=== PATIENT | male | born 1955 | race Caucasian/White ===

== ENCOUNTER 2022-11-04 05:51 | Inpatient (IN) ==
--- NOTE | 2022-10-14 10:15 | PAT Medication Instructions ---
Medication Instructions Date of Service October 14, 2022 Home Medications aspirin 81 mg capsule 81 mg PO QAM cyanocobalamin (vitamin B-12) 100 mcg tablet (Vitamin B-12) 100 mcg PO QAM diclofenac sodium 75 mg tablet,delayed release 75 mg PO BID PRN Pain fluticasone propionate 50 mcg/actuation nasal spray,suspension 1 spray intranasal QAM metformin 850 mg tablet 850 mg PO TID omeprazole 20 mg tablet,delayed release 20 mg PO BID simvastatin 40 mg tablet 40 mg PO PM ASK your surgeon for instructions diclofenac sodium 75 mg tablet,delayed release 75 mg PO BID PRN Pain DO NOT take the morning of surgery cyanocobalamin (vitamin B-12) 100 mcg tablet (Vitamin B-12) 100 mcg PO QAM metformin 850 mg tablet 850 mg PO TID Take morning of surgery With a small sip of water, OTHERWISE NOTHING TO EAT OR DRINK AFTER MIDNIGHT: aspirin 81 mg capsule 81 mg PO QAM (unless surgeon directed otherwise) fluticasone propionate 50 mcg/actuation nasal spray,suspension 1 spray intranasal QAM omeprazole 20 mg tablet,delayed release 20 mg PO BID Take evening before surgery metformin 850 mg tablet 850 mg PO TID omeprazole 20 mg tablet,delayed release 20 mg PO BID simvastatin 40 mg tablet 40 mg PO PM Other Notes If you have any questions please call us at [phone] or [phone] or [phone] or [phone]
--- NOTE | 2022-10-21 09:22 | Anesthesiology Consultation ---
Date of Service October 21, 2022 Assessment & Plan (1) Encounter for pre-operative examination: Chart Review Chart Review: Acceptable Risk for Surgery (pending PCP clearance 10/24/22 ) and Patient seen in Pre Admission Testing -Awaiting PCP clearance 10/24/22 - Check BSG AM DOS Per PAT appt on 10/21/22, patient recently traveled to [place]- returned 10/08/22. Pt is vaccinated for Covid. Will leave to surgeon's discretion if preop Covid testing needed. Educated on importance of using Covid precautions one week prior to surgery Teaching & Discussion Pre-Anesthesia Teaching/Discussion Notes: Instructed NPO after midnight before surgery,except medications with 15 cc of water. Medication instructions provided according to the PAT guidelines. History Surgery Operation Date: 11/04/22 12:45 Proposed Procedures p L4-L5 Decompression and Fusion, Spinal Cord Monitoring - Sumeet Dooley DO Height/Weight Height: 5 ft 3 in Weight: 72.4 kg Allergies Allergy/AdvReac Type Severity Reaction Status Date / Time No Known Allergies Allergy Verified 10/14/22 07:43 Medications Home Medications Medication Instructions Recorded Confirmed Last Taken aspirin 81 mg capsule 81 mg PO QAM 10/14/22 10/14/22 Unknown cyanocobalamin (vitamin B-12) 100 100 mcg PO QAM 10/14/22 10/14/22 Unknown mcg tablet (Vitamin B-12) diclofenac sodium 75 mg 75 mg PO BID PRN Pain 10/14/22 10/14/22 Unknown tablet,delayed release fluticasone propionate 50 1 spray intranasal QAM 10/14/22 10/14/22 Unknown mcg/actuation nasal spray,suspension metformin 850 mg tablet 850 mg PO TID 10/14/22 10/14/22 Unknown omeprazole 20 mg tablet,delayed 20 mg PO BID 10/14/22 10/14/22 Unknown release simvastatin 40 mg tablet 40 mg PO PM 10/14/22 10/14/22 Unknown Past Medical History Medical History Diabetes Well controlled - per patient Environmental allergies GERD (gastroesophageal reflux disease) Well controlled and stable Hyperlipidemia Exercise / Class Metabolic Activity II 4-5 Yardwork/Stairs/Walk up hill (one flight of stairs - no chest pain or SOB ) Past Family History Family History Other No family history of adverse response to anesthesia Past Surgical History Surgical History History of repair of hip fracture UOC- old fx repair Hx of colonoscopy Hx of tooth extraction Past Anesthesia History No Hx of Anesthesia Complications and No Family Hx of Anesthesia Complications History of PONV No Hx of PONV and Hx of Motion Sickness Social History Smoking Status: Never smoker Do You Dip or Chew Tobacco: No Hx Alcohol Use: Yes alcohol intake frequency: a few times a month Hx Substance Use: No substance use type: does not use Review of Systems Snoring - unknown - sleeps alone Patient denies chest pain, shortness of breath, dyspnea on exertion, cough, wheezing, palpitations. No hx of seizures, stroke, OK. No hx of blood clots or blood transfusions Physical Exam Vital Signs VITALS BP 110/61 P 69 TEMP 98.1 SP02 98% RESP 16 Constitutional no acute distress ENMT Mouth: no TMJ clicking Thyromental Distance: > or= 3.5 Finger Breadths (3.5) Mallampati Class: II Mouth / Teeth: 1. Missing 2. Missing All top teeth missing Missing bottom noted teeth and bottom molars Neck neck extension not limited Respiratory normal respiratory effort; no respiratory distress Auscultation: lungs clear to auscultation bilaterally; no wheezes Cardiovascular Rate/Rhythm: regular rate and regular rhythm Heart Sounds: no murmur Vessels: no carotid bruit Musculoskeletal Spine: + pain with cervical ROM (mild) Extremities: extremities normal to inspection Psychiatric Orientation: alert Lab Results Anesthesia Preop Results Results Anesthesia Widget: WBC 4.72 K/ul (4.8-10.8) L 10/21/22 Hgb 14.6 g/dl (14.0-18.0) 10/21/22 Hct 43.5 % (40.1-51.0) 10/21/22 Plt 259 K/uL (130-400) 10/21/22 Na 139 mmol/L (136-145) 10/21/22 K 4.7 mmol/L (3.5-5.1) 10/21/22 Cl 105 mmol/L (98-107) 10/21/22 CO2 27 mmol/L (21-32) 10/21/22 BUN 14 mg/dl (6-23) 10/21/22 Creat 0.97 mg/dl (0.6-1.4) 10/21/22 Glucose Level 129 mg/dl (70-99(Fasting)) H 10/21/22 PT 10.5 Seconds (9.0-12.0) 10/21/22 PTT 26.8 Seconds (21.0-31.0) 10/21/22 INR 1.0 (0.9-1.1) 10/21/22 HA1c 7.4 % (4.5-5.6) H 10/21/22 Urine Color Yellow 10/21/22 Urine Appearance Clear (Clear) 10/21/22 Urine pH 6.0 (4.5-7.5) 10/21/22 Urine Specific [place] 1.016 (1.000-1.030) 10/21/22 Urine Protein Negative (Negative) 10/21/22 Urine Glucose (UA) Negative (Negative) 10/21/22 Urine Ketones Negative (Negative) 10/21/22 Urine Blood Negative (Negative) 10/21/22 Urine Nitrite Negative (Negative) 10/21/22 Urine Bilirubin Negative (Negative) 10/21/22 Urine Urobilinogen Negative (Negative) 10/21/22 Urine Leukocyte Esterase Negative (Negative) 10/21/22 Blood Type O Positive 10/21/22 Antibody Screen NEGATIVE 10/21/22 Testing Electrocardiogram Date: 10/21/22 Findings: + NSR @ (74bpm ) Rightward axis Chest X-Ray Date: 10/21/22 Findings: + NAD COVID-19 Risk Screen Screening Information COVID-19 Screen Date: 10/21/22 Exposure 21 Days Family/Household +COVID Last 21 Days: No Exposure 10 Days Any COVID Exposure Last 10 Days: No Symptoms Last 10 Days Experienced COVID Sx Last 10 Days: No + COVID 0-90 Days COVID + in Last 0-90 Days: No Risk Plan COVID Risk Plan: No Risk Identified Patient Education COVID Preop Screening Education Complete: Yes
[2022-11-04] MEDS ORDERED: CeleBREX 200 MG CAP PO SCH (06:00)
[2022-11-04] MEDS ORDERED: ACETAMINOPHEN 500 MG TAB PO SCH (06:00)
[2022-11-04] MEDS ORDERED: ceFAZolin 2000MG 2,000 MG/15 ML SYR IV SCH (06:00)
[2022-11-04] MEDS ORDERED: LR 15ML/HR IV SCH (06:00)
[2022-11-04] MEDS ORDERED: GABAPENTIN 300 MG CAP PO SCH (06:00)
[2022-11-04] MEDS ORDERED: MIDAZOLAM HCL 1 MG/ML 2ML VIAL ONE (07:03)
[2022-11-04] MEDS ORDERED: fentaNYL citrate 100 MCG/2 ML VIAL ONE ×2 (07:03→09:04)
[2022-11-04] MEDS ORDERED: PROPOFOL IV EMULSION 10 MG/ML 20 ML VIAL IV ONE (07:04)
[2022-11-04] MEDS ORDERED: LIDOCAINE 2% MPF LOCAL 5 ML VIAL INFIL ONE (07:04)
[2022-11-04] MEDS ORDERED: DEXAMETHASONE SOD INJ 4 MG/ML VIAL ONE (07:05)
[2022-11-04] MEDS ORDERED: ROCURONIUM BROMIDE 10 MG/ML 5 ML VIAL IV ONE ×6 (07:05→08:21)
[2022-11-04] MEDS ORDERED: BUPIVACAINE/EPINEPHRINE 0.25% 1:200,000 30 ML VIAL ONE (07:06)
[2022-11-04] MEDS ORDERED: ceFAZolin 330 MG/ML 1 GM VIAL ONE (07:06)
[2022-11-04] MEDS ORDERED: ONDANSETRON INJ 2 MG/ML 2 ML VIAL ONE (07:08)
[2022-11-04] MEDS ORDERED: SUGAMMADEX SODIUM 200 MG/2 ML VIAL IV ONE (07:16)
[2022-11-04] MEDS ORDERED: LARYING-O-JET KIT (LTA) ONE (07:21)
--- NOTE | 2022-11-04 07:42 | History & Physical Bridge Note ---
Date of Service November 04, 2022 History & Physical Bridge Note I have examined the patient, reviewed the History & Physical and in the interval since the performance of the History & Physical I have noted the following changes of clinical significance: no changes noted
--- NOTE | 2022-11-04 07:43 | History & Physical Report ---
Date of Service November 04, 2022 Assessment & Plan (1) Neurogenic claudication due to lumbar spinal stenosis: Plan: L4-L5 decompression and fusion History of Present Illness Chief Complaint: Back and leg pain Primary Care Provider: Demetri Weber PA-C This is a 67-year-old male who presents with chronic persistent back and leg pain after failing extensive course of nonoperative care is here for surgical intervention. Allergies Allergy/AdvReac Type Severity Reaction Status Date / Time No Known Allergies Allergy Verified 11/04/22 06:23 Home Medications Medication Instructions Recorded Confirmed Type aspirin 81 mg capsule 81 mg PO QAM 10/14/22 11/04/22 History cyanocobalamin (vitamin B-12) 100 100 mcg PO QAM 10/14/22 11/04/22 History mcg tablet (Vitamin B-12) diclofenac sodium 75 mg 75 mg PO BID PRN Pain 10/14/22 11/04/22 History tablet,delayed release fluticasone propionate 50 1 spray intranasal QAM 10/14/22 11/04/22 History mcg/actuation nasal spray,suspension metformin 850 mg tablet 850 mg PO TID 10/14/22 11/04/22 History omeprazole 20 mg tablet,delayed 20 mg PO BID 10/14/22 11/04/22 History release simvastatin 40 mg tablet 40 mg PO PM 10/14/22 11/04/22 History Past Med/Surg History Medical History Diabetes Well controlled - per patient Environmental allergies GERD (gastroesophageal reflux disease) Well controlled and stable Hyperlipidemia Surgical History History of repair of hip fracture 2019-U fx repair Hx of colonoscopy Hx of tooth extraction Family History Other No family history of adverse response to anesthesia Social History Smoking Status: Never smoker Second Hand Exposure: No; Do You Dip or Chew Tobacco: No; Tobacco Cessation Education Requested by Patient: No Hx Alcohol Use: Yes Hx Substance Use: No Preferred Language: Arabic Communication Ability: Effective Memorial Designer Required: No Beliefs That Will Affect Care: None Current Living Situation: Alone Other Information That Helps Us Care for You: No Feels Safe at Home: Yes Safety Concerns: Feels Safe At This Time Assistive Devices: Glasses Assistive Devices Comment: does not wear his dentures Physical Exam Physical Exam: Patient is alert and oriented Heart regular rhythm Lungs clear Results & Data Results & Data ([facility]) Vital Signs (Past 12 Hours) Vital Signs Temp Pulse Resp BP Pulse Ox O2 Del Method 11/04/22 06:37 36.8 C 74 18 172/90 H 98 Room Air
[2022-11-04] MEDS ORDERED: ePHEDrine sulfate 50 MG/ML SYR ONE (08:46)
[2022-11-04] MEDS ORDERED: ePHEDrine sulfate 50 MG/ML AMP IV PRN (08:54)
[2022-11-04] MEDS ORDERED: fentaNYL citrate 100 MCG/2 ML VIAL IV PRN (08:54)
[2022-11-04] MEDS ORDERED: ONDANSETRON INJ 2 MG/ML 2 ML VIAL IV PRN ×2 (08:54→11:02)
[2022-11-04] MEDS ORDERED: HYDROmorphone INJ 2 MG/ML SYR/VIAL IV PRN (08:54)
[2022-11-04] MEDS ORDERED: ATROPINE SULFATE 0.1 MG/ML 10ML SYR IV PRN (08:54)
[2022-11-04] MEDS ORDERED: ePHEDrine sulfate 50 MG/ML AMP ONE (09:05)
[2022-11-04] MEDS ORDERED: KETOROLAC 30 MG/ML VIAL ONE (09:11)
--- NOTE | 2022-11-04 09:25 | Operative Report ---
Post Operative Report Pre & Post Diagnosis Operation Date: 11/04/22 07:45 Pre-Op Diagnosis: Lumbar spinal stenosis L4-5 Spondylolisthesis L4-5 Herniated nucleus pulposus L4-5 Post-Op Diagnosis: Same I identified the patient and participated in the time-out.: Yes Procedure Operation Date: 11/04/22 07:45 Actual Procedures #1 lumbar decompression with bilateral medial facetectomies and foraminotomies L3-L4 L4-5. #2 posterior spinal fusion L4-5. #3 placement posterior instrumentation L4-5. #4 interbody fusion L4-5. #5 placement of Spira 14 x 26 mm cage at L4-5 #6 placement locally harvested morselized autograft in the posterior gutters. #7 placement of I factor combined with V toss in the interbody space and posterior lateral gutters. Surgeon Sumeet Dooley, Net Programmer Betzaida Chavez Estimated Blood Loss 100 Findings Consistent with Post-Op Diagnosis Specimens None Indications This is a 67-year-old male who presents above-mentioned diagnosis after failed course of nonoperative care is here for surgical invention. Description of Procedure Patient was met with identified informed consent obtained. Patient was then taken to the operative suite underwent a patient placed in a prone position on the Babak table top of the Pritesh frame. All bony prominences well-padded eyes inspected to ensure no external pressure placed upon the. This point the lumbar spine was prepped and draped in normal sterile fashion. Sharp dissection with the assistance of Bovie cautery was performed down to and exposing the lamina and transverse processes of L4-L5 bilaterally. From caudal to cephalad fashion complete laminectomy of L4 partial laminectomy L3 was performed includ ing bilateral medial facetectomies and foraminotomies addressing severe spinal stenosis as well as a massive disc herniation at L4-5. After decompression pedicle screws were placed in L4-5 bilaterally with assistance of fluoroscopy and the properly sized jeff placed. By way of entrance foraminal approach and right a complete discectomy of L4-5 was performed endplates curetted to subcortical bleeding bone and a 14 x 26 mm spiral cage filled with I factor tapped in position. The rods then compressed locked into final position bilaterally. The transverse processes of L for L5 were burred to subcortical bleeding bone. I factor bone of the test and locally harvested morselized autograft was placed in the posterior gutters. 15 round LASHELL drain inserted. The incision was then closed with 1 Vicryl the fascia 2-0 Vicryl subcutaneously and 4 Monocryl for final skin closure. Steri-Strips dressings placed. Patient waken taken to PACU in stable condition. Please note spinal cord monitoring was utilized at the procedure no changes noted. Lastly Betzaida Chavez was present at the entire procedure and all the patient positioning complex portions of the surgery and fascial closure. I attest to the content of the Intraoperative Record and any orders documented therein. Any exceptions are noted below.
--- NOTE | 2022-11-04 09:49 | Fluoroscopy Report ---
FL lumbar spine 2-3V CLINICAL HISTORY: L4-L5 DECOMPRESSION AND FUSION COMPARISON STUDY: None FLUOROSCOPY TIME: 20 seconds FLUOROSCOPY IMAGES: 2 EXPOSURE DOSE: 7.57 mGy FINDINGS: Posterior bilateral jeff and screw fusion with discectomy at L4-L5. The hardware appears int act. No unexpected opaque foreign bodies identified. IMPRESSION: Fluoroscopic assistance as above. ACT 112: Negative or not required by law. Electronically signed by: Nikhil Coleman M.D. 11/04/2022 9:48 AM
--- NOTE | 2022-11-04 10:29 | Anesthesiology Progress Note ---
Date of Service November 04, 2022 Anesthesia Post Procedure Vital Signs Vital Signs: Temp Pulse Pulse Resp BP Pulse Ox O2 Del Method 11/04/22 10:25 85 15 164/82 H 96 Room Air 11/04/22 10:15 36.1 C L 88 18 151/76 H 96 Room Air 11/04/22 10:05 87 12 152/77 H 97 Room Air 11/04/22 09:55 90 12 151/75 H 100 Oxymask 11/04/22 09:45 87 12 169/80 H 100 Oxymask 11/04/22 09:38 36.2 C L 82 16 155/71 H 100 Oxymask 11/04/22 06:37 36.8 C 74 18 172/90 H 98 Room Air O2 Flow Rate 11/04/22 10:25 11/04/22 10:15 11/04/22 10:05 11/04/22 09:55 6 11/04/22 09:45 6 11/04/22 09:38 6 11/04/22 06:37 Pain Intensity Bilateral Upper Leg: Pain Intensity: 2 Back: Pain Intensity: 4 Transfer of Care Handoff Completed per policy Notes Mental Status: alert / awake / arousable and participated in evaluation Patient Amnestic to Procedure: Yes Nausea / Vomiting: adequately controlled Pain: adequately controlled Airway Patency, RR, SpO2: stable & adequate BP & HR: stable & adequate Hydration State: stable & adequate Anesthetic Complications: no major complications apparent and Pt Satisfied with anesthetic care
[2022-11-04] MEDS ORDERED: LORazepam 2 MG/1 ML VIAL IV PRN (11:02)
[2022-11-04] MEDS ORDERED: METOCLOPRAMIDE HCL INJ 5 MG/ML 2 ML VIAL IV PRN (11:02)
[2022-11-04] MEDS ORDERED: ONDANSETRON 4 MG OD TAB PO PRN (11:02)
[2022-11-04] MEDS ORDERED: DO NOT ADMINISTER PNEUMOCOCCAL VACCINE PRN (11:02)
[2022-11-04] MEDS ORDERED: LORazepam 0.5 MG TAB PO PRN (11:02)
[2022-11-04] MEDS ORDERED: DO NOT ADMINISTER FLU VACCINE PRN (11:02)
[2022-11-04] MEDS ORDERED: hydrOXYzine HCl 25 MG TAB PO PRN (11:02)
[2022-11-04] MEDS ORDERED: HYDROmorphone INJ 0.5 MG/0.5 ML SYR IV PRN (11:02)
[2022-11-04] MEDS ORDERED: FAMOTIDINE 20 MG TAB PO PRN (11:02)
[2022-11-04] MEDS ORDERED: bisacodyL 10 MG SUPP PR PRN (11:02)
[2022-11-04] MEDS ORDERED: MAGNESIUM HYDROXIDE SUSP 30 ML UDC PO PRN (11:02)
[2022-11-04] MEDS ORDERED: HYDROmorphone INJ 1 MG/ML SYRINGE IV PRN (11:02)
[2022-11-04] MEDS ORDERED: diphenhydrAMINE Capsule 25 MG CAP PO PRN (11:02)
[2022-11-04] MEDS ORDERED: PROMETHAZINE HCL 12.5 MG in SODIUM CHLORIDE 0.9% 50 ML IV PRN (11:02)
[2022-11-04] MEDS ORDERED: ACETAMINOPHEN 1,000 MG/100 ML VIAL IV PRN (11:02)
[2022-11-04] MEDS ORDERED: SOD PHOSPHATE/SOD BIPHOSPHATE ENEMA 132 ML BTL PR PRN (11:02)
[2022-11-04] MEDS ORDERED: NALOXONE HCL 0.4 MG/1 ML VIAL/CARP IV PRN (11:02)
[2022-11-04] MEDS ORDERED: ALUMINUM/MAGNESIUM SUSP 30 ML UDC PO PRN (11:02)
[2022-11-04] MEDS ORDERED: PHARMACY GLYCEMIC MGMT CONSULT PRN (11:02)
[2022-11-04] MEDS ORDERED: CARBOHYDRATES FOR HYPOGLYCEMIA PO PRN (11:30)
[2022-11-04] MEDS ORDERED: LANTUS PER UNIT CHARGE SQ ONE (11:30)
[2022-11-04] MEDS ORDERED: DEXTROSE 50% 50 ML SYRINGE IV PRN (11:30)
[2022-11-04] MEDS ORDERED: GLUCAGON FOR INJ 1 MG VIAL IM PRN (11:30)
[2022-11-04] MEDS ORDERED: GLUCOSE 40% GEL 15 GM TUBE PO PRN (11:30)
[2022-11-04] MEDS ORDERED: GLUCOSE 10 TAB/TUBE PO PRN (11:30)
--- NOTE | 2022-11-04 11:32 | Pharmacy Report ---
Pharmacy Glycemic Short Note 2 - Date of Service November 04, 2022 - Glycemic Short BSG Results (Last 24 hours): 11/04/22 11/04/22 06:30 09:41 POC Glucose 182 H 219 H OUTPATIENT ANTIDIABETIC REGIMEN: * Metformin 850mg PO TID HbA1C: 7.4% (10/21/22) ASSESSMENT: * Pt is a 67 YOM with diabetes POD #0 lumbar decompression surgery. Pharmacy consulted to assist with glycemic management. * Pre op BSG-182, post op BSG-219mg/dL. Pt received dexamethasone intra-op and is scheduled dexamethasone 6mg IV daily X 3 doses. * Will initiate Novolog severe stress scale q6 (until diet ordered). Lantus 10 units X 1 given steroids on board. Re-assess basal needs in AM. PLAN FOR INPATIENT GLYCEMIC CONTROL: * Hold outpatient oral diabetes medications * Basal insulin * Lantus 10 units SQ X 1 * Bolus insulin * NovoLog per scale ACHS or Q6hrs while NPO * Goal Range: Low 110 mg/dL - High 140 mg/dL * Correction Factor: 25 mg/dL/unit * Nutritional / Prandial insulin per carb ratio of 1 unit per 8 grams CHO consumed
[2022-11-04] MEDS: SODIUM CHLORIDE 0.9% 1000ML 1,000 ML IV SCH ×2 (11:51→20:22)
[2022-11-04] MEDS ORDERED: INSULIN ASPART PER UNIT SC SCH (12:00)
--- NOTE | 2022-11-04 12:17 | Hospitalist Consultation ---
Date of Consultation November 04, 2022 Assessment & Plan (1) Neurogenic claudication due to lumbar spinal stenosis: POD#0 L4-L5 decompression and fusion by Dr. Dooley Activity and wound care orders as per ortho Pain control with bowel regimen PT/OT Monitor H/H for acute blood loss anemia and transfuse blood products PRN EBL 100 cc (2) Diabetes: Recent Hgb A1c 7.4 Hold oral agents Glycemic pharmacy consulted by spine ortho (3) Hyperlipidemia: Continue statin (4) GERD (gastroesophageal reflux disease): Continue PPI DVT PROPHYLAXIS TEDs/SCDs as per spine Ortho Supervising Physician Co-Signing Physician Notes Pt is a 67 y/o M with hx of DMII, HLD, DDD admitted for L4-L5 fusion and discectomy and consulted for medication co management. PE: NAD, well developed Lungs: CTA, no wheezing or crackles Cardiac: Normal S1/S2, no murmur Abd: ND, soft, NT MSK: able to move b/l toes Psych: AAOx3, normal affect A/P: S/p L4-L5 decompression and fusion: -pt is doing well - BP is slightly elevated but overall VSS - repeat CBC and BMp - pain management per ortho team - PT/OT Elevated BP: -pt does not take any hx of HTN or HTN meds at home -for now will monitor BP at this time -if BP remains elevated then consider ACEI or ARBS DMII: -hold metformin -ISS Other chronic conditions: plan as above Agree with A/P by HANNAH Roque History of Present Illness Reason for Consultation: Postop medical management Requesting Physician: Dr. Dooley Attending Physician: Sumeet Dooley DO History of Present Illness 67-year-old male with PMH DM type II, dyslipidemia, GERD, and other problems listed below who is s/p L4-L5 decompression and fusion today by Dr. Dooley. Postoperatively, the patient is doing well. He reports his pain is well controlled. Reports right leg numbness and tingling that was present prior to surgery. No other lower extremity weakness, numbness, tingling reported. He reports a mild headache due to caffeine withdrawal. No chest pain or shortness of breath. Reports some mild nausea postoperatively that has since resolved. No abdominal pain. Denies lightheadedness and dizziness. Patient has not voided since surgery. Allergies Allergy/AdvReac Type Severity Reaction Status Date / Time No Known Allergies Allergy Verified 11/04/22 06:23 Home Medications Medication Instructions Recorded Confirmed Type aspirin 81 mg capsule 81 mg PO QAM 10/14/22 11/04/22 History cyanocobalamin (vitamin B-12) 100 100 mcg PO QAM 10/14/22 11/04/22 History mcg tablet (Vitamin B-12) diclofenac sodium 75 mg 75 mg PO BID PRN Pain 10/14/22 11/04/22 History tablet,delayed release fluticasone propionate 50 1 spray intranasal QAM 10/14/22 11/04/22 History mcg/actuation nasal spray,suspension metformin 850 mg tablet 850 mg PO BID 10/14/22 11/04/22 History omeprazole 20 mg tablet,delayed 20 mg PO BID 10/14/22 11/04/22 History release simvastatin 40 mg tablet 40 mg PO PM 10/14/22 11/04/22 History Patient History Medical History Diabetes Well controlled - per patient Environmental allergies GERD (gastroesophageal reflux disease) Well controlled and stable Hyperlipidemia Surgical History History of repair of hip fracture 2020-UOC- old fx repair Hx of colonoscopy Hx of tooth extraction Family History Mother Diabetes Other No family history of adverse response to anesthesia Social History Smoking Status: Never smoker Second Hand Exposure: No; Do You Dip or Chew Tobacco: No; Tobacco Cessation Education Requested by Patient: No Hx Alcohol Use: Yes Hx Substance Use: No Preferred Language: Maltese Communication Ability: Effective Blocking Machine Operator Second Required: No Beliefs That Will Affect Care: None Current Living Situation: Alone Other Information That Helps Us Care for You: No Feels Safe at Home: Yes Safety Concerns: Feels Safe At This Time Assistive Devices: Walker Assistive Devices Comment: does not wear his dentures Review of Systems Review of Systems: ROS per HPI, all other systems reviewed and negative Physical Exam Constitutional: WD/WN, vitals as above Eyes: PERRL, conjunctivae normal, anicteric sclerae ENMT: external ear and nose normal, oropharynx normal Respiratory: normal respiratory effort, lungs clear to auscultation Cardiovascular: Rate/Rhythm: regular rate and regular rhythm Vessels: normal peripheral pulses Extremities: no edema Gastrointestinal (Abdomen): normal bowel sounds, soft, nontender, no hepatosplenomegaly Musculoskeletal: no cyanosis or clubbing, extremities motor strength 5/5 S/p back surgery, pedal pushes and pulls strong bilaterally, drain in place draining bloody drainage Skin: no rashes, warm and dry Neurologic: PERRL, EOMI, accommodation nl, no face palsy, no dysarthria Psychiatric: A+Ox3, euthymic affect Results & Data Results & Data ([facility]) Vital Signs (Past 12 Hours) Vital Signs Temp Pulse Pulse Resp BP Pulse Ox O2 Del Method 11/04/22 11:19 36.4 C L 82 18 153/74 H 95 Room Air 11/04/22 10:40 84 14 157/79 H 97 Room Air 11/04/22 10:25 85 15 164/82 H 96 Room Air 11/04/22 10:15 36.1 C L 88 18 151/76 H 96 Room Air 11/04/22 10:05 87 12 152/77 H 97 Room Air 11/04/22 09:55 90 12 151/75 H 100 Oxymask 11/04/22 09:45 87 12 169/80 H 100 Oxymask 11/04/22 09:38 36.2 C L 82 16 155/71 H 100 Oxymask 11/04/22 06:37 36.8 C 74 18 172/90 H 98 Room Air O2 Flow Rate 11/04/22 11:19 11/04/22 10:40 11/04/22 10:25 11/04/22 10:15 11/04/22 10:05 11/04/22 09:55 6 11/04/22 09:45 6 11/04/22 09:38 6 11/04/22 06:37
[2022-11-04] MEDS: oxyCODONE HCL IR 5 MG TAB (IMMEDIATE RELEASE) PO PRN ×2 (12:55→17:40)
[2022-11-04] MEDS: ceFAZolin 2000MG 2,000 MG/15 ML SYR IV SCH (17:36)
[2022-11-04] MEDS: INSULIN ASPART PER UNIT SC SCH ×2 (17:36→20:32)
[2022-11-04] MEDS: ACETAMINOPHEN 500 MG TAB PO PRN (19:48)
[2022-11-04] MEDS: DOCUSATE SODIUM/SENNA 50/8.6MG TAB PO SCH (20:24)
[2022-11-04] MEDS: SIMVASTATIN 40 MG TAB PO SCH (20:24)
[2022-11-04] MEDS: PANTOprazole 40 MG TAB PO SCH (20:25)
[2022-11-05] MEDS: oxyCODONE HCL IR 5 MG TAB (IMMEDIATE RELEASE) PO PRN ×4 (00:20→21:28)
[2022-11-05] MEDS: ceFAZolin 2000MG 2,000 MG/15 ML SYR IV SCH (00:21)
[2022-11-05] MEDS ORDERED: COUGH DROP (SUGAR FREE) LOZ 24 LOZ/1 BOX BUCCAL ONE (04:55)
[2022-11-05] MEDS: POLYETHYLENE (MIRALAX) 17 GM PACK PO SCH ×3 (05:00→18:01)
[2022-11-05 06:07] LABS: Basophils # (auto) 0.01 K/uL (0-0.2); Basophils % (auto) 0.1 %; Eosinophils # (auto) 0.02 K/uL (0-0.50); Eosinophils % (auto) 0.2 %; Hematocrit (blood only) 35.4 % (40.1-51.0); Hemoglobin 12.1 g/dl (14.0-18.0); Immature Granulocytes # (auto) 0.03 K/uL (0.00-0.02); Immature Granulocytes % (auto) 0.3 %; Lymphocytes # (auto) 1.35 K/uL (1.2-3.4); Lymphocytes % (auto) 15.5 %; Mean Corpuscular Hemoglobin 32.3 pg (25.0-34.0); Mean Corpuscular Hgb Conc 34.2 g/dL (32.0-36.0); Mean Corpuscular Volume 94.4 fL (80.0-100.0); Mean Platelet Volume 10.6 fL (9.4-12.4); Monocytes # (auto) 0.55 K/uL (0.24-0.82); Monocytes % (auto) 6.3 %; Neutrophils # (auto) 6.74 K/uL (1.4-6.5); Neutrophils % (auto) 77.6 %; Platelet Count 247 K/uL (130-400); RDW Coefficient of Variation 13.2 % (11.5-14.5); RDW Standard Deviation 45.6 fL (36.4-46.3); Red Blood Count 3.75 M/uL (4.63-6.08)
[2022-11-05 06:14] LABS: BUN Creatinine Ratio 10.8 (10-20); Calcium 8.7 mg/dl (8.5-10.1); Creatinine Clr Calc Pharmacy 59.9 ml/min; Est GFR (African American) 86.5 ml/min; Est GFR (Non-African American) 74.6 ml/min; Potassium 4.2 mmol/L (3.5-5.1)
[2022-11-05] MEDS: ASPIRIN 81 MG CHEW PO SCH (11:05)
[2022-11-05] MEDS: CYANOCOBALAMIN (B-12) 100 MCG TABLET PO SCH (11:05)
[2022-11-05] MEDS: PANTOprazole 40 MG TAB PO SCH ×2 (11:06→20:58)
[2022-11-05] MEDS: FLUTICASONE PROPIONATE NA SPR 16 GM BTL SCH (11:06)
[2022-11-05] MEDS: INSULIN ASPART PER UNIT SC SCH ×4 (11:06→21:20)
[2022-11-05] MEDS: LANTUS PER UNIT CHARGE SQ SCH (11:07)
[2022-11-05] MEDS: dexAMETHasone 6 MG in SYRINGE 0 ML IV SCH (11:07)
--- NOTE | 2022-11-05 12:32 | Hospitalist Progress Note ---
Date of Service November 05, 2022 Assessment & Plan (1) Neurogenic claudication due to lumbar spinal stenosis: Plan: POD#0 L4-L5 decompression and fusion by Dr. Dooley Activity and wound care orders as per ortho Pain control with bowel regimen PT/OT Monitor H/H for acute blood loss anemia and transfuse blood products PRN EBL 100 cc (2) Diabetes: Plan: Recent Hgb A1c 7.4 Hold oral agents Glycemic pharmacy consulted by spine ortho (3) Hyperlipidemia: Plan: Continue statin (4) GERD (gastroesophageal reflux disease): Plan: Continue PPI DVT PROPHYLAXIS TEDs/SCDs as per spine Ortho Admission and Anticipated Discharge Date Admission Date: November 04, 2022 Results & Data Results & Data ([facility]) Vital Signs (Past 12 Hours) Vital Signs Temp Pulse Resp BP Pulse Ox O2 Del Method 11/05/22 07:42 36.7 C 72 18 159/78 H 95 Room Air 11/05/22 03:00 36.4 C L 73 18 156/78 H 96 Room Air
--- NOTE | 2022-11-05 12:34 | Hospitalist Progress Note ---
Date of Service November 05, 2022 Assessment & Plan (1) Neurogenic claudication due to lumbar spinal stenosis: (2) Diabetes: (3) Hyperlipidemia: (4) GERD (gastroesophageal reflux disease): Plan Neurogenic claudication due to lumbar spinal stenosis: POD#1 L4-L5 decompression and fusion by Dr. Dooley Activity and wound care orders as per ortho Pain control with bowel regimen PT/OT EBL 100ml; LASHELL drain 335ml Acute Blood Loss Anemia, post-surgical expected Pre op hgb 14.6, hgb today 12.1 Likely dilutional component as well Diabetes Type 2 Recent Hgb A1c 7.4 Hold metformin Glycemic pharmacy consulted by spine ortho, appreciate their recs BSG 138 Elevated blood pressure reading BP 159/78 Has been elevated systolic since admission Not on any oral antihypertensive Per EPIC review BP has been controlled as outpt, may be pain related or situational Will monitor closely Hyperlipidemia: Continue statin GERD (gastroesophageal reflux disease): Continue PPI DVT ppx: Per ortho Dispo: per primary PCP: Demetri Weber FULL CODE Pt was seen and examined in collaboration with Dr. De Dios, please see addendum A total of 35 minutes were spent with greater than 50% of that time face to face with the patient, personally reviewing all current laboratories, imaging studie s, past medication reconciliation, outpatient chart review, and discussion with specialists to collaborate care for the patient with attending. Please see attending documentation for corrections and/or additions. Thank you for this consultation. We will follow the patient with you during their hospital stay. You can reach a member of the [facility] Hospitalist Team 04/05 via hospitalist role on tiger text. Admission and Anticipated Discharge Date Admission Date: November 04, 2022 Supervising Physician Co-Signing Physician Notes Patient is seen and examined at bedside. States having back pain which is controlled with medications. Denies any chest pain, dyspnea, shortness of breath. On exam patient is moderately built and nourished, no apparent distress, normocephalic/atraumatic, EOMI, normal breath sounds, clear to auscultation, S1-S2, no murmur, no pedal edema, abdomen soft, nontender, normal bowel sounds, Back:surgical site in dressing, alert, awake, oriented, grossly no focal deficits. Pain control, DVT prophylaxis as per primary team. Continue PT OT, wound care. Continue insulin for management of diabetes mellitus. Continue bowel regimen to prevent constipation. Blood pressure elevated--asymptomatic likely situational, secondary to pain and steroids, monitor blood pressure for now. I personally reviewed the record. Patient is interviewed and examined at bedside. Patient's care is coordinated with Edith Daniel PA-C. Please refer to the documentation above for details of patient's presentation and for discussion of other issues. Subjective Pt was seen and examined in room 303. Follow up lumbar surgery. Overall complains of incisional discomfort, stretching. Denies any radicular sx. Denies f/c/s, chest pain, sob, v/d. He does have some occasional nausea but tolerating diet. Voiding without difficulty. Review of Systems Review of Systems: All systems reviewed & are unremarkable except as noted in HPI & below Physical Exam Physical Exam: Gen: WD/WN, sitting in bedside chair, NAD, A&O x3 HEENT: Normocephalic, atraumatic, conjunctivae moist, sclerae anicteric, mucous membranes moist. Lung: Clear to Auscultation bilaterally, no wheezes/rales/rhonchi Heart: Regular rate, regular rhythm, no murmurs, rubs, or gallops Abdomen: Soft, NT, ND +BS x 4 Extremities: No edema, lumbar dressing cdi with serosang drainage Skin: Warm, no rash, negative turgor. Results & Data Results & Data ([facility]) Vital Signs (Past 12 Hours) Vital Signs Temp Pulse Resp BP Pulse Ox O2 Del Method 11/05/22 07:42 36.7 C 72 18 159/78 H 95 Room Air 11/05/22 03:00 36.4 C L 73 18 156/78 H 96 Room Air Laboratory Results Short CBC 11/05/22 Range/Units 05:23 WBC 8.70 (4.8-10.8) K/ul Hgb 12.1 L (14.0-18.0) g/dl Hct 35.4 L (40.1-51.0) % Plt Count 247 (130-400) K/uL BMP 11/05/22 05:23 Sodium 139 Potassium 4.2 Chloride 107 Carbon Dioxide 29 BUN 11 Creatinine 1.02 Glucose 175 H Calcium 8.7 Medications Administered Current Inpatient Medications Acetaminophen (Acetaminophen 500 Mg Tab) 1,000 mg PO Q8H PRN PRN Reason: MILD Pain Scale 1,2,3 & Pre PT Stop: 12/04/22 11:01 Last Admin: 11/04/22 19:48 Dose: 1,000 mg Al Hydrox/Mg Hydrox/Simethicone (Aluminum/Magnesium Susp 30 Ml Udc) 30 ml PO Q6H PRN PRN Reason: Dyspepsia Stop: 12/04/22 11:01 Aspirin (Aspirin 81 Mg Chew) 81 mg PO [facility] Stop: 12/05/22 08:59 Last Admin: 11/05/22 11:05 Dose: 81 mg Bisacodyl (Bisacodyl 10 Mg Supp) 10 mg AR DAILY PRN PRN Reason: Constipation Stop: 12/04/22 11:01 Cyanocobalamin (Cyanocobalamin (B-12) 100 Mcg Tablet) 100 mcg PO [facility] Stop: 12/05/22 08:59 Last Admin: 11/05/22 11:05 Dose: 100 mcg Dextrose (Dextrose 50% 50 Ml Syringe) 25 - 50 ml IV UD PRN; Protocol PRN Reason: Hypoglycemia Protocol Stop: 12/04/22 11:29 Diphenhydramine HCl (Diphenhydramine Capsule 25 Mg Cap) 25 mg PO Q6H PRN PRN Reason: Allergic Rhinitis/Insomnia Stop: 12/04/22 11:01 Famotidine (Famotidine 20 Mg Tab) 20 mg PO Q12H PRN PRN Reason: Dyspepsia Stop: 12/04/22 11:01 Fluticasone Propionate (Fluticasone Propionate Na Spr 16 Gm Btl) 1 sprays NA [facility] Stop: 12/05/22 08:59 Last Admin: 11/05/22 11:06 Dose: 1 sprays Glucagon (Glucagon For Inj 1 Mg Vial) 1 mg IM UD PRN; Protocol PRN Reason: Hypoglycemia Protocol Stop: 12/04/22 11:29 Glucose (Glucose 40% Gel 15 Gm Tube) 15 - 30 gm PO UD PRN; Protocol PRN Reason: Hypoglycemia Protocol Stop: 12/04/22 11:29 Glucose (Glucose 10 Tab/Tube) 4 - 8 tab PO UD PRN; Protocol PRN Reason: Hypoglycemia Protocol Stop: 12/04/22 11:29 Hydromorphone HCl (Hydromorphone Inj 0.5 Mg/0.5 Ml Syr) 0.5 mg IV Q3H PRN PRN Reason: MODERATE Pain (Scale 4,5,6) & Pre PT Stop: 11/18/22 11:01 Hydromorphone HCl (Hydromorphone Inj 1 Mg/Ml Syringe) 1 mg IV Q3H PRN PRN Reason: SEVERE Pain (Scale 7,8,9,10) Stop: 11/18/22 11:01 Hydroxyzine HCl (Hydroxyzine Hcl 25 Mg Tab) 25 mg PO Q8H PRN PRN Reason: Anxiety Stop: 12/04/22 11:01 Promethazine HCl 12.5 mg/ (Sodium Chloride) 50.5 mls @ 202 mls/hr IV Q6H PRN PRN Reason: Nausea &/or Vomiting Stop: 12/04/22 11:01 Dexamethasone 6 mg/ Syringe 1.5 mls @ 1 mls/min IV DAILY [facility] Stop: 11/07/22 09:02 Last Admin: 11/05/22 11:07 Dose: 1 mls/min Influenza Virus Vaccine Quadrival (Do Not Administer Flu Vaccine) 1 each N/A PRN PRN PRN Reason: Notification Stop: 12/04/22 11:01 Insulin Aspart (Insulin Aspart Per Unit) 0 units SC ACHS [facility] Stop: 12/04/22 11:59 Last Admin: 11/05/22 11:06 Dose: Not Given Insulin Glargine (Lantus Per Unit Charge) 10 units SQ DAILY [facility] Stop: 12/05/22 08:59 Last Admin: 11/05/22 11:07 Dose: 10 units Lorazepam (Lorazepam 0.5 Mg Tab) 0.5 mg PO Q8H PRN PRN Reason: Sedation/Anxiety Stop: 12/04/22 11:01 Magnesium Hydroxide (Magnesium Hydroxide Susp 30 Ml Udc) 30 ml PO Q24H PRN PRN Reason: Constipation Stop: 12/04/22 11:01 Metoclopramide HCl (Metoclopramide Hcl Inj 5 Mg/Ml 2 Ml Vial) 10 mg IV Q6H PRN PRN Reason: Nausea &/or Vomiting Stop: 12/04/22 11:01 Miscellaneous (Carbohydrates For Hypoglycemia ) 15 - 30 gm PO UD PRN PRN Reason: Hypoglycemia Treatment Stop: 12/04/22 11:29 Miscellaneous Information (Pharmacy Glycemic Mgmt Consult) 1 each N/A UD PRN PRN Reason: Consult Stop: 12/04/22 11:01 Naloxone HCl (Naloxone Hcl 0.4 Mg/1 Ml Vial/Carp) 0.1 mg IV Q5M PRN PRN Reason: Oversedation/Resp depression Stop: 12/04/22 11:01 Ondansetron HCl (Ondansetron Inj 2 Mg/Ml 2 Ml Vial) 4 mg IV Q6H PRN PRN Reason: Nausea &/or Vomiting Stop: 12/04/22 11:01 Ondansetron HCl (Ondansetron 4 Mg Od Tab) 4 mg PO Q6H PRN PRN Reason: Nausea Stop: 12/04/22 11:01 Oxycodone HCl (Oxycodone Hcl Ir 5 Mg Tab (Immediate Release)) 5 - 10 mg PO Q4H PRN PRN Reason: Pain & Pre PT Stop: 11/18/22 11:01 Last Admin: 11/05/22 11:07 Dose: 10 mg Pantoprazole Sodium (Pantoprazole 40 Mg Tab) 40 mg PO BID [facility] Stop: 12/04/22 20:59 Last Admin: 11/05/22 11:06 Dose: 40 mg Pneumococcal Polyvalent Vaccine (Do Not Administer Pneumococcal Vaccine) 1 each N/A PRN PRN PRN Reason: Notification Stop: 12/04/22 11:01 Polyethylene Glycol (Polyethylene (Miralax) 17 Gm Pack) 17 gm PO Q6 [facility] Stop: 12/05/22 05:59 Last Admin: 11/05/22 05:00 Dose: 17 gm Senna/Docusate Sodium (Docusate Sodium/Senna 50/8.6mg Tab) 2 tab PO HS [facility] Stop: 12/04/22 20:59 Last Admin: 11/04/22 20:24 Dose: 2 tab Simvastatin (Simvastatin 40 Mg Tab) 40 mg PO PM [facility] Stop: 12/04/22 20:59 Last Admin: 11/04/22 20:24 Dose: 40 mg Sodium Biphosphate/Sodium Phosphate (Sod Phosphate/Sod Biphosphate Enema 132 Ml Btl) 132 ml AR ONE PRN PRN Reason: Constipation Stop: 12/04/22 11:01 Tramadol HCl (Tramadol Hcl 50 Mg Tablet) 50 - 100 mg PO Q4H PRN PRN Reason: Moderate-Severe pain & Pre PT Stop: 12/04/22 11:01
--- NOTE | 2022-11-05 12:39 | Hospitalist Progress Note ---
Date of Service November 05, 2022 Assessment & Plan (1) Neurogenic claudication due to lumbar spinal stenosis: (2) Diabetes: (3) Hyperlipidemia: (4) GERD (gastroesophageal reflux disease): Plan Neurogenic claudication due to lumbar spinal stenosis: POD#1 L4-L5 decompression and fusion by Dr. Dooley Activity and wound care orders as per ortho Pain control with bowel regimen PT/OT EBL 100ml; LASHELL drain 335ml Acute Blood Loss Anemia, post-surgical expected Pre op hgb 14.6, hgb today 12.1 Likely dilutional component as well Diabetes Type 2 Recent Hgb A1c 7.4 Hold metformin Glycemic pharmacy consulted by spine ortho, appreciate their recs BSG 138 Elevated blood pressure reading BP 159/78 Has been elevated systolic since admission Not on any oral antihypertensive Per EPIC review BP has been controlled as outpt, may be pain related or situational Will monitor closely Hyperlipidemia: Continue statin GERD (gastroesophageal reflux disease): Continue PPI DVT ppx: Per ortho Dispo: per primary PCP: Demetri Weber FULL CODE Pt was seen and examined in collaboration with Dr. De Dios, please see addendum A total of 35 minutes were spent with greater than 50% of that time face to face with the patient, personally reviewing all current laboratories, imaging studie s, past medication reconciliation, outpatient chart review, and discussion with specialists to collaborate care for the patient with attending. Please see attending documentation for corrections and/or additions. Thank you for this consultation. We will follow the patient with you during their hospital stay. You can reach a member of the [facility] Hospitalist Team 04/05 via hospitalist role on tiger text. Admission and Anticipated Discharge Date Admission Date: November 04, 2022 Subjective Pt was seen and examined in room 303. Follow up lumbar surgery. Overall complains of incisional discomfort, stretching. Denies any radicular sx. Denies f/c/s, chest pain, sob, v/d. He does have some occasional nausea but tolerating diet. Voiding without difficulty. Review of Systems Review of Systems: All systems reviewed & are unremarkable except as noted in HPI & below Physical Exam Physical Exam: Gen: WD/WN, sitting in bedside chair, NAD, A&O x3 HEENT: Normocephalic, atraumatic, conjunctivae moist, sclerae anicteric, mucous membranes moist. Lung: Clear to Auscultation bilaterally, no wheezes/rales/rhonchi Heart: Regular rate, regular rhythm, no murmurs, rubs, or gallops Abdomen: Soft, NT, ND +BS x 4 Extremities: No edema, lumbar dressing cdi with serosang drainage Skin: Warm, no rash, negative turgor. Results & Data Results & Data ([facility]) Vital Signs (Past 12 Hours) Vital Signs Temp Pulse Resp BP Pulse Ox O2 Del Method 11/05/22 11:20 37 C 86 18 173/80 H 99 Room Air 11/05/22 07:42 36.7 C 72 18 159/78 H 95 Room Air 11/05/22 03:00 36.4 C L 73 18 156/78 H 96 Room Air Laboratory Results Short CBC 11/05/22 Range/Units 05:23 WBC 8.70 (4.8-10.8) K/ul Hgb 12.1 L (14.0-18.0) g/dl Hct 35.4 L (40.1-51.0) % Plt Count 247 (130-400) K/uL BMP 11/05/22 05:23 Sodium 139 Potassium 4.2 Chloride 107 Carbon Dioxide 29 BUN 11 Creatinine 1.02 Glucose 175 H Calcium 8.7 Medications Administered Current Inpatient Medications Acetaminophen (Acetaminophen 500 Mg Tab) 1,000 mg PO Q8H PRN PRN Reason: MILD Pain Scale 1,2,3 & Pre PT Stop: 12/04/22 11:01 Last Admin: 11/04/22 19:48 Dose: 1,000 mg Al Hydrox/Mg Hydrox/Simethicone (Aluminum/Magnesium Susp 30 Ml Udc) 30 ml PO Q6H PRN PRN Reason: Dyspepsia Stop: 12/04/22 11:01 Aspirin (A[facility]in 81 Mg Chew) [facility]: 12/05/22 08:59 Last Admin: 11/05/22 11:05 Dose: 81 mg Bisacodyl (Bisacodyl 10 Mg Supp) 10 mg AL DAILY PRN PRN Reason: Constipation Stop: 12/04/22 11:01 Cyanocobalamin (Cyanocobalamin (B-12) 100 Mcg Tablet) 100 mcg PO QAM [facility] Stop: 12/05/22 08:59 Last Admin: 11/05/22 11:05 Dose: 100 mcg Dextrose (Dextrose 50% 50 Ml Syringe) 25 - 50 ml IV UD PRN; Protocol PRN Reason: Hypoglycemia Protocol Stop: 12/04/22 11:29 Diphenhydramine HCl (Diphenhydramine Capsule 25 Mg Cap) 25 mg PO Q6H PRN PRN Reason: Allergic Rhinitis/Insomnia Stop: 12/04/22 11:01 Famotidine (Famotidine 20 Mg Tab) 20 mg PO Q12H PRN PRN Reason: Dyspepsia Stop: 12/04/22 11:01 Fluticasone Propionate (Fluticasone Propionate Na Spr 16 Gm Btl) 1 sprays NA QAM [facility] Stop: 12/05/22 08:59 Last Admin: 11/05/22 11:06 Dose: 1 sprays Glucagon (Glucagon For Inj 1 Mg Vial) 1 mg IM UD PRN; Protocol PRN Reason: Hypoglycemia Protocol Stop: 12/04/22 11:29 Glucose (Glucose 40% Gel 15 Gm Tube) 15 - 30 gm PO UD PRN; Protocol PRN Reason: Hypoglycemia Protocol Stop: 12/04/22 11:29 Glucose (Glucose 10 Tab/Tube) 4 - 8 tab PO UD PRN; Protocol PRN Reason: Hypoglycemia Protocol Stop: 12/04/22 11:29 Hydromorphone HCl (Hydromorphone Inj 0.5 Mg/0.5 Ml Syr) 0.5 mg IV Q3H PRN PRN Reason: MODERATE Pain (Scale 4,5,6) & Pre PT Stop: 11/18/22 11:01 Hydromorphone HCl (Hydromorphone Inj 1 Mg/Ml Syringe) 1 mg IV Q3H PRN PRN Reason: SEVERE Pain (Scale 7,8,9,10) Stop: 11/18/22 11:01 Hydroxyzine HCl (Hydroxyzine Hcl 25 Mg Tab) 25 mg PO Q8H PRN PRN Reason: Anxiety Stop: 12/04/22 11:01 Promethazine HCl 12.5 mg/ (Sodium Chloride) 50.5 mls @ 202 mls/hr IV Q6H PRN PRN Reason: Nausea &/or Vomiting Stop: 12/04/22 11:01 Dexamethasone 6 mg/ Syringe 1.5 mls @ 1 mls/min IV DAILY [facility] Stop: 11/07/22 09:02 Last Admin: 11/05/22 11:07 Dose: 1 mls/min Influenza Virus Vaccine Quadrival (Do Not Administer Flu Vaccine) 1 each N/A PRN PRN PRN Reason: Notification Stop: 12/04/22 11:01 Insulin Aspart (Insulin Aspart Per Unit) 0 units SC ACHS [facility] Stop: 12/04/22 11:59 Last Admin: 11/05/22 11:06 Dose: Not Given Insulin Glargine (Lantus Per Unit Charge) 10 units SQ DAILY [facility] Stop: 12/05/22 08:59 Last Admin: 11/05/22 11:07 Dose: 10 units Lorazepam (Lorazepam 0.5 Mg Tab) 0.5 mg PO Q8H PRN PRN Reason: Sedation/Anxiety Stop: 12/04/22 11:01 Magnesium Hydroxide (Magnesium Hydroxide Susp 30 Ml Udc) 30 ml PO Q24H PRN PRN Reason: Constipation Stop: 12/04/22 11:01 Metoclopramide HCl (Metoclopramide Hcl Inj 5 Mg/Ml 2 Ml Vial) 10 mg IV Q6H PRN PRN Reason: Nausea &/or Vomiting Stop: 12/04/22 11:01 Miscellaneous (Carbohydrates For Hypoglycemia ) 15 - 30 gm PO UD PRN PRN Reason: Hypoglycemia Treatment Stop: 12/04/22 11:29 Miscellaneous Information (Pharmacy Glycemic Mgmt Consult) 1 each N/A UD PRN PRN Reason: Consult Stop: 12/04/22 11:01 Naloxone HCl (Naloxone Hcl 0.4 Mg/1 Ml Vial/Carp) 0.1 mg IV Q5M PRN PRN Reason: Oversedation/Resp depression Stop: 12/04/22 11:01 Ondansetron HCl (Ondansetron Inj 2 Mg/Ml 2 Ml Vial) 4 mg IV Q6H PRN PRN Reason: Nausea &/or Vomiting Stop: 12/04/22 11:01 Ondansetron HCl (Ondansetron 4 Mg Od Tab) 4 mg PO Q6H PRN PRN Reason: Nausea Stop: 12/04/22 11:01 Oxycodone HCl (Oxycodone Hcl Ir 5 Mg Tab (Immediate Release)) 5 - 10 mg PO Q4H PRN PRN Reason: Pain & Pre PT Stop: 11/18/22 11:01 Last Admin: 11/05/22 11:07 Dose: 10 mg Pantoprazole Sodium (Pantoprazole 40 Mg Tab) 40 mg PO BID [facility] Stop: 12/04/22 20:59 Last Admin: 11/05/22 11:06 Dose: 40 mg Pneumococcal Polyvalent Vaccine (Do Not Administer Pneumococcal Vaccine) 1 each N/A PRN PRN PRN Reason: Notification Stop: 12/04/22 11:01 Polyethylene Glycol (Polyethylene (Miralax) 17 Gm Pack) 17 gm PO Q6 [facility] Stop: 12/05/22 05:59 Last Admin: 11/05/22 05:00 Dose: 17 gm Senna/Docusate Sodium (Docusate Sodium/Senna 50/8.6mg Tab) 2 tab PO HS [facility] Stop: 12/04/22 20:59 Last Admin: 11/04/22 20:24 Dose: 2 tab Simvastatin (Simvastatin 40 Mg Tab) 40 mg PO PM [facility] Stop: 12/04/22 20:59 Last Admin: 11/04/22 20:24 Dose: 40 mg Sodium Biphosphate/Sodium Phosphate (Sod Phosphate/Sod Biphosphate Enema 132 Ml Btl) 132 ml AL ONE PRN PRN Reason: Constipation Stop: 12/04/22 11:01 Tramadol HCl (Tramadol Hcl 50 Mg Tablet) 50 - 100 mg PO Q4H PRN PRN Reason: Moderate-Severe pain & Pre PT Stop: 12/04/22 11:01
--- NOTE | 2022-11-05 12:44 | Orthopedic Progress Note ---
Date of Service November 05, 2022 Assessment & Plan (1) Neurogenic claudication due to lumbar spinal stenosis: Plan: This time continue physical therapy monitor his LASHELL operatively discharge home in Thursday. Admission and Anticipated Discharge Date Admission Date: November 04, 2022 Subjective Patient's back pain is controlled leg pain markedly improved Physical Exam Physical Exam: Patient is in the chair at the bedside. Is good strength testing. Results & Data ([facility]) Vital Signs (Past 12 Hours) Vital Signs Temp Pulse Resp BP Pulse Ox O2 Del Method 11/05/22 11:20 37 C 86 18 173/80 H 99 Room Air 11/05/22 07:42 36.7 C 72 18 159/78 H 95 Room Air 11/05/22 03:00 36.4 C L 73 18 156/78 H 96 Room Air
--- NOTE | 2022-11-05 12:48 | Pharmacy Report ---
Pharmacy Glycemic Short Note 2 - Date of Service November 05, 2022 - Glycemic Short BSG Results (Last 24 hours): 11/04/22 11/04/22 11/05/22 17:07 20:21 05:23 Glucose 175 H POC Glucose 227 H 142 H 11/05/22 11/05/22 07:47 11:45 Glucose POC Glucose 138 H 182 H OUTPATIENT ANTIDIABETIC REGIMEN: * Metformin 850mg PO TID HbA1C: 7.4% (10/21/22) ASSESSMENT: 11/05/22 * BSG's over the past day were [phone] mg/dL. * Fasting this morning was 137 mg/dL, will continue with 10 units of Lantus QAM in observance of continued dexamethasone 6mg IV daily. * Will tighten carb coverage from 8 to 6 to reduce steroid-induced mealtime hyperglycemia. 11/04/22, Initial Assessment * Pt is a 67 YOM with diabetes POD #0 lumbar decompression surgery. Pharmacy consulted to assist with glycemic management. * Pre op BSG-182, post op BSG-219mg/dL. Pt received dexamethasone intra-op and is scheduled dexamethasone 6mg IV daily X 3 doses. * Will initiate Novolog severe stress scale q6 (until diet ordered). Lantus 10 units X 1 given steroids on board. Re-assess basal needs in AM. PLAN FOR INPATIENT GLYCEMIC CONTROL: * Hold outpatient oral diabetes medications * Basal insulin * Lantus 10 units SQ QAM * Bolus insulin * NovoLog per scale ACHS or Q6hrs while NPO * Goal Range: Low 110 mg/dL - High 140 mg/dL * Correction Factor: 25 mg/dL/unit * Nutritional / Prandial insulin per carb ratio of 1 unit per 6 grams CHO consumed
[2022-11-05] MEDS: ACETAMINOPHEN 500 MG TAB PO PRN (16:57)
[2022-11-05] MEDS: SIMVASTATIN 40 MG TAB PO SCH (20:58)
[2022-11-05] MEDS: DOCUSATE SODIUM/SENNA 50/8.6MG TAB PO SCH (20:58)
[2022-11-06] MEDS: POLYETHYLENE (MIRALAX) 17 GM PACK PO SCH ×5 (00:20→23:01)
[2022-11-06] MEDS: oxyCODONE HCL IR 5 MG TAB (IMMEDIATE RELEASE) PO PRN (06:11)
[2022-11-06] MEDS: ASPIRIN 81 MG CHEW PO SCH (07:50)
[2022-11-06] MEDS: dexAMETHasone 6 MG in SYRINGE 0 ML IV SCH (07:50)
[2022-11-06] MEDS: FLUTICASONE PROPIONATE NA SPR 16 GM BTL SCH (07:51)
[2022-11-06] MEDS: CYANOCOBALAMIN (B-12) 100 MCG TABLET PO SCH (07:51)
[2022-11-06] MEDS: PANTOprazole 40 MG TAB PO SCH ×2 (07:51→21:33)
[2022-11-06] MEDS: INSULIN ASPART PER UNIT SC SCH ×4 (08:31→21:22)
[2022-11-06] MEDS: LANTUS PER UNIT CHARGE SQ SCH (08:31)
--- NOTE | 2022-11-06 08:40 | Orthopedic Progress Note ---
Date of Service November 06, 2022 Assessment & Plan (1) Neurogenic claudication due to lumbar spinal stenosis: Plan: Continue PT today plan for discharge tomorrow. Admission and Anticipated Discharge Date Admission Date: November 04, 2022 Subjective Patient's back pain is controlled leg pain markedly improved Physical Exam Physical Exam: Patient is in the chair at the bedside. Is good strength testing. Appears comfortable. Results & Data ([facility]) Vital Signs (Past 12 Hours) Vital Signs Temp Pulse Resp BP Pulse Ox O2 Del Method 11/06/22 07:32 36.6 C 69 18 173/81 H 98 Room Air 11/05/22 20:51 37.1 C 76 18 131/63 95 Room Air
[2022-11-06 09:27] LABS: Hematocrit (blood only) 38.1 % (42.0-52.0); Hemoglobin 12.9 g/dl (14.0-18.0); Mean Corpuscular Hemoglobin 31.9 pg (25.0-34.0); Mean Corpuscular Hgb Conc 33.9 g/dL (32.0-36.0); Mean Corpuscular Volume 94.3 fL (80.0-100.0); Mean Platelet Volume 10.6 fL (9.4-12.4); Platelet Count 282 K/uL (130-400); RDW Coefficient of Variation 13.4 % (11.5-14.5); RDW Standard Deviation 46.5 fL (36.4-46.3); Red Blood Count 4.04 M/uL (4.70-6.10); White Blood Count 10.37 K/ul (4.8-10.8)
--- NOTE | 2022-11-06 11:31 | Hospitalist Progress Note ---
Date of Service November 06, 2022 Assessment & Plan (1) Neurogenic claudication due to lumbar spinal stenosis: (2) Diabetes: (3) Hyperlipidemia: (4) GERD (gastroesophageal reflux disease): Plan Neurogenic claudication due to lumbar spinal stenosis: POD#2 L4-L5 decompression and fusion by Dr. Dooley Activity and wound care orders as per ortho Pain control with bowel regimen PT/OT EBL 100ml Acute Blood Loss Anemia, post-surgical expected Pre op hgb 14.6, hgb today 12.9 (12.1 yesterday), stable Likely dilutional component as well Diabetes Type 2 Recent Hgb A1c 7.4 Hold metformin Glycemic pharmacy consulted by spine ortho, appreciate their recs BSG 138 Elevated blood pressure reading Has been elevated systolic since admission Not on any oral antihypertensive at home Likely a situational component - continue optimizing pain control, may add small dose amlodipine Hyperlipidemia: Continue statin GERD (gastroesophageal reflux disease): Continue PPI DVT ppx: Per ortho Dispo: per primary PCP: Demetri Weber FULL CODE Pt was seen and examined in collaboration with Dr. De Dios, please see addendum A total of 35 minutes were spent with greater than 50% of that time face to face with the patient, personally reviewing all current laboratories, imaging studies, past medication reconciliation, outpatient chart review, and discussion with specialists to collaborate care for the patient with attending. Please see attending documentation for corrections and/or additions. Thank you for this consultation. We will follow the patient with you during their hospital stay. You can reach a member of the [facility] Hospitalist Team 04/05 via hospitalist role on tiger text. Admission and Anticipated Discharge Date Admission Date: November 04, 2022 Supervising Physician Co-Signing Physician Notes Patient is seen and examined at bedside. Back pain is much improved. Ambulating in hallways with no issues. + Flatus, No BM this Am. Denies any chest pain, dyspnea, shortness of breath. On exam patient is moderately built and nourished, no apparent distress, normocephalic/atraumatic, EOMI, normal breath sounds, clear to auscultation, S1-S2, no murmur, no pedal edema, abdomen soft, nontender, normal bowel sounds, Back:surgical site in dressing, alert, awake, oriented, grossly no focal deficits. Pain control, DVT prophylaxis as per primary team. Continue PT OT, wound care. Continue insulin for management of diabetes mellitus. Continue bowel regimen to prevent constipation. Blood pressure elevated--will add low dose Amlodipine. I personally reviewed the record. Patient is interviewed and examined at bedside. Patient's care is coordinated with Soheila Paulino PA-C. Please refer to the documentation above for details of patient's presentation and for discussion of other issues. Subjective Seen and examined in follow-up in room 303. Patient sitting in bedside chair, feeling well today. Able to ambulate in the halls for much longer distances than preoperatively. Still has some chronic numbness in bilateral extremities but pain significantly decreased. Denies any new issues overnight. No fever, chills, chest pain, shortness of breath, nausea, vomiting, abdominal pain, dysuria, diarrhea or constipation. Passing flatus, no bowel movement yet. Review of Systems Review of Systems: At least ten systems reviewed and negative except as noted in the HPI. Physical Exam Physical Exam: Gen: WD/WN, NAD, sitting in bedside chair, A&Ox3 HEENT: Normocephalic, atraumatic, conjunctivae moist, sclerae anicteric, mucous membranes moist Lung: Clear to Auscultation bilaterally, no wheezes/rales/rhonchi Heart: Regular rate, regular rhythm, no murmurs, rubs, or gallops Abdomen: Soft, NT, ND +BS x 4, + umbilical hernia, reducible Extremities: +spinal dressing c/d/i, LASHELL drain visualized. No edema Skin: Warm, no rash Results & Data Results & Data ([facility]) Vital Signs (Past 12 Hours) Vital Signs Temp Pulse Resp BP Pulse Ox O2 Del Method 11/06/22 07:32 36.6 C 69 18 173/81 H 98 Room Air Laboratory Results Short CBC 11/06/22 Range/Units 06:03 WBC 10.37 (4.8-10.8) K/ul Hgb 12.9 L (14.0-18.0) g/dl Hct 38.1 L (42.0-52.0) % Plt Count 282 (130-400) K/uL Diagnostic Findings Lumbar Spine X-Ray 11/04/22 07:45 FL lumbar spine 2-3V CLINICAL HISTORY: L4-L5 DECOMPRESSION AND FUSION COMPARISON STUDY: None FLUOROSCOPY TIME: 20 seconds FLUOROSCOPY IMAGES: 2 EXPOSURE DOSE: 7.57 mGy FINDINGS: Posterior bilateral jeff and screw fusion with discectomy at L4-L5. The hardware appears intact. No unexpected opaque foreign bodies identified. IMPRESSION: Fluoroscopic assistance as above. ACT 112: Negative or not required by law. Electronically signed by: Nikhil Coleman M.D. 11/04/2022 9:48 AM
[2022-11-06] MEDS: ACETAMINOPHEN 500 MG TAB PO PRN (12:04)
[2022-11-06] MEDS: amLODIPine BESYLATE 5 MG TAB PO SCH (13:02)
--- NOTE | 2022-11-06 13:48 | Pharmacy Report ---
Pharmacy Glycemic Short Note 2 - Date of Service November 06, 2022 - Glycemic Short BSG Results (Last 24 hours): 11/05/22 11/05/22 11/06/22 17:08 20:24 08:00 POC Glucose 205 H 203 H 137 H 11/06/22 12:01 POC Glucose 211 H OUTPATIENT ANTIDIABETIC REGIMEN: * Metformin 850mg PO TID HbA1C: 7.4% (10/21/22) ASSESSMENT: 11/06/22 * BSGs yesterday were 144-816-106-203 mg/dL. * Patient received 26 units of insulin (10 units of basal and 16 units of bolus). Patient is currently on day 2/3 of dexamethasone 6 mg IV daily * Fasting today is 132 mg/dL with a lunch BSG of 211 mg/dL. * Continue Lantus 10 units since fasting is within goal range. * Tighten Novolog parameters since BSGs trend upwards through the day. 11/05/22 * BSG's over the past day were 103-229-540-142 mg/dL. * Fasting this morning was 137 mg/dL, will continue with 10 units of Lantus QAM in observance of continued dexamethasone 6mg IV daily. * Will tighten carb coverage from 8 to 6 to reduce steroid-induced mealtime hyperglycemia. 11/04/22, Initial Assessment * Pt is a 67 YOM with diabetes POD #0 lumbar decompression surgery. Pharmacy consulted to assist with glycemic management. * Pre op BSG-182, post op BSG-219mg/dL. Pt received dexamethasone intra-op and is scheduled dexamethasone 6mg IV daily X 3 doses. * Will initiate Novolog severe stress scale q6 (until diet ordered). Lantus 10 units X 1 given steroids on board. Re-assess basal needs in AM. PLAN FOR INPATIENT GLYCEMIC CONTROL: * Hold outpatient oral diabetes medications * Basal insulin * Lantus 10 units SQ QAM * Bolus insulin * NovoLog per scale ACHS or Q6hrs while NPO * Goal Range: Low 110 mg/dL - High 140 mg/dL * Correction Factor: 20 mg/dL/unit * Nutritional / Prandial insulin per carb ratio of 1 unit per 4 grams CHO consumed
[2022-11-06 15:41] LABS: BUN Creatinine Ratio 13.6 (10-20); Calcium 9.1 mg/dl (8.5-10.1); Creatinine Clr Calc Pharmacy 75.5 ml/min; Est GFR (African American) 105.1 ml/min; Est GFR (Non-African American) 90.7 ml/min; Magnesium 2.2 mg/dl (1.7-2.4); Potassium 3.9 mmol/L (3.5-5.1)
[2022-11-06] MEDS: traMADol HCL 50 MG TABLET PO PRN ×2 (16:38→21:32)
[2022-11-06] MEDS: DOCUSATE SODIUM/SENNA 50/8.6MG TAB PO SCH (21:32)
[2022-11-06] MEDS: SIMVASTATIN 40 MG TAB PO SCH (21:33)
[2022-11-07] MEDS: POLYETHYLENE (MIRALAX) 17 GM PACK PO SCH ×2 (06:07→12:33)
[2022-11-07] MEDS: traMADol HCL 50 MG TABLET PO PRN (06:16)
[2022-11-07] MEDS: amLODIPine BESYLATE 5 MG TAB PO SCH (08:50)
[2022-11-07] MEDS: ASPIRIN 81 MG CHEW PO SCH (08:50)
[2022-11-07] MEDS: CYANOCOBALAMIN (B-12) 100 MCG TABLET PO SCH (08:50)
[2022-11-07] MEDS: PANTOprazole 40 MG TAB PO SCH (08:50)
[2022-11-07] MEDS: dexAMETHasone 6 MG in SYRINGE 0 ML IV SCH (08:51)
[2022-11-07] MEDS: FLUTICASONE PROPIONATE NA SPR 16 GM BTL SCH (08:51)
[2022-11-07] MEDS: INSULIN ASPART PER UNIT SC SCH ×2 (08:55→12:41)
[2022-11-07] MEDS ORDERED: LANTUS PER UNIT CHARGE SQ SCH (09:00)
--- NOTE | 2022-11-07 10:46 | Discharge Summary ---
Date of Service November 07, 2022 Admission HPI Per Admitting Provider This is a 67-year-old male who presents with chronic persistent back and leg pain after failing extensive course of nonoperative care is here for surgical intervention. Principal Diagnosis Lumbar spinal stenosis with neurogenic claudication Discharge Data Allergies Allergy/AdvReac Type Severity Reaction Status Date / Time No Known Allergies Allergy Verified 11/04/22 06:23 Consultations 11/04/22 11:02 Consult Hospitalist Routine Procedures Performed Operation Date: 11/04/22 07:45 Actual Procedures p L4-L5 Decompression and Fusion, Spinal Cord Monitoring, Application of Bone Graft(Not Applicable) - Sumeet Dooley DO Ordered Studies 11/04/22 07:45 FL lumbar spine 2-3V Routine Hospital Course (1) Neurogenic claudication due to lumbar spinal stenosis: Patient with lumbar decompression fusion tolerated this well was taken to orthopedic for postoperative. Postop day 1 is up and ambulating progressed to postop day #2. LASHELL drain decreasing appropriately. Excellent strength testing. Subsidy discharged on postop day #3. Discharge orders instructions from the chart for further review. Total Time Total Time Spent Total Time Spent (In Minutes): 20 minutes Discharge Plan Discharge Items Patient Disposition: Home - Self-Care Reason For Visit: POST OP Discharge Diagnosis: Lumbar spinal stenosis Activity: As commented below Non-emergency contact: Primary Care Provider Call non-emergency contact if: you have any medication questions Follow-up/Referrals: Demetri Weber PA-C [Primary Care Provider] - Diet: Regular Addtl Attending Provider Instructions: ACTIVITY RECOMMENDATIONS: SELF CARE INSTRUCTIONS AFTER THORACIC/LUMBAR FUSIONS 1. You may walk to your tolerance. It is good exercise for your legs and back. Expect some back and intermittent leg aches and pains. 2. You may perform "counter-top" level activities (make a sandwich, jay with a project, etc.). 3. No bending or lifting of more than 10 pounds or back twisting of any nature (roll like a log when turning in bed). 4. You may ride in a car for 20-30 minutes at a time. No driving until after your first visit with your doctor. 5. Frequent changes of position and restricting sitting to 30 minutes at a time will help limit the amount of back spasms and stiffness you may experience. 6. You may discontinue the use of ambulatory aids (cane, crutches, etc.) once your strength and confidence allow. 7. You may casing wringer operator the shower and let water strike your incision when you arrive home at least once daily. Do not take a tub bath, sit in a hot tub or go into a swimming pool until after your first recheck in the office. SPECIAL CARE INSTRUCTIONS: VERY IMPORTANT TO READ AND REVIEW A. Your surgical incision has been closed with a cosmetic suture under the skin that will dissolve in about 6 weeks. In 14 days, you can use a pair of clean scissors and cut the suture that is left outside of the skin at the ends of your incision. 1. The small skin tapes can be removed 7 days after surgery if they have not fallen off by that point. 2. You may keep the wound open to air as much as possible to promote healing after post-op day number 5 unless told otherwise by your doctor. 3. If you think the wound looks like it is becoming infected (redness or worsening drainage) and/or you are experiencing fever, chill or worsening back pain and muscle spasms, contact the office so that we may shaila luate you as soon as possible. B. Complications are uncommon, but please contact us if you have any signs or symptoms of: 1. wound infection (fever higher than 102.5 degrees F, redness, separation of wound, drainage, or increasing pain from the incision) 2. blood clots in legs (pain, swelling, redness and warmth in legs) 3. urinary tract infection (fever higher than 102.5 degrees F, burning upon urination or increased frequency of urination) 4. nerve problems (inability to walk on your toes or heels, numbness, loss of bowel or bladder control) 5. any other symptoms that concern you C. Please call the office at if you have any concerns or questions about your operation or recovery. D. No smoking! Smoking drastically decreases the chance of a solid fusion. E. Do not take any anti-inflammatory medications (Indocin, Advil, Motrin, As pirin, Naprosyn, etc.) as these may inhibit the chance of a solid fusion. Tylenol is okay to take for pain. MANAGING PAIN AFTER SPINAL SURGERY 1. Narcotic medication is intended for short-term use and will be provided for surgical pain. Surgical pain usually lasts for a period of 4-6 weeks. Narcotic medication includes Percocet, Vicodin, Darvocet, Tylenol #3 or Lortab. 2. Longer-term pain is more appropriately treated with non-narcotic medication such as Tylenol ES. 3. Muscle spasm is not appropriately treated with narcotics. Muscle relaxers such as Soma, Flexeril or Skelaxin can be used along with Tylenol ES. 4. Remember that we all live with some "aches and pains". This is not unusual or uncommon after an injury or as we get older. a. Back pain is expected and may include muscle spasms for 4 to 6 weeks after surgery. The pain should gradually improve. If the pain worsens for no apparent reason, please contact the office. b. Intermittent leg pain may also be experienced and should not be concerned about unless it worsens for no apparent reason. If so, please contact the office. 5. We will provide appropriate medication within the normal guidelines of their prescribed use. We will also be very cautious and aware of potential abuse and extended duration of patients' medication needs. a. Pain medications are for your comfort and to assist with sleep and rest so that the tissue can heal. They are not provided in order to return to normal activity and should not be used through the day. To do so or worsening pain at night can result from ongoing tissue damage and development of tolerance to the prescribed medicine. 6. Please allow 2-3 days to process refills. Prescriptions will not be mailed but must be picked up at the office. FOLLOW UP VISIT: Keep your scheduled follow-up appointment. Any questions, please call the office at . Pending Studies at Discharge: No Stand-Alone Forms: My [facility] [employer], Smoking Cessation Medications and DC Order Prescriptions: New tramadol 50 mg tablet 50 mg PO Q6H PRN (Reason: pain, moderate) Qty: 30 0RF oxycodone 5 mg tablet 5 mg PO Q6H PRN (Reason: pain, severe) Qty: 30 0RF Continued cyanocobalamin (vitamin B-12) [Vitamin B-12] 100 mcg Tablet 100 mcg PO QAM metformin 850 mg Tablet 850 mg PO BID simvastatin 40 mg Tablet 40 mg PO PM fluticasone propionate 50 mcg/actuation [place],Suspension 1 spray INTRANASAL QAM Rx Instructions: administer into each nostril omeprazole 20 mg Tablet,Delayed Release (Dr/Ec) 20 mg PO BID aspirin 81 mg Capsule 81 mg PO QAM Discontinued diclofenac sodium 75 mg Tablet,Delayed Release (Dr/Ec) 75 mg PO BID PRN (Reason: Pain) Discharge Orders: Discharge Order (Routine); Ordered 11/07/22 Ordered By: Sumeet Dooley Admission Data Admit Date/Time: 11/04/22 09:28 Attending Provider: Sumeet Dooley Admit Provider: Sumeet Dooley Primary Care Provider: Demetri Weber Other Providers: Beronica Clifford ; Anthony De Dios ; Soheila Paulino
--- NOTE | 2022-11-07 11:08 | Hospitalist Progress Note ---
Date of Service November 07, 2022 Assessment & Plan (1) Neurogenic claudication due to lumbar spinal stenosis: (2) Diabetes: (3) Hyperlipidemia: (4) GERD (gastroesophageal reflux disease): Plan Neurogenic claudication due to lumbar spinal stenosis: POD#3 L4-L5 decompression and fusion by Dr. Dooley Activity and wound care orders as per ortho Pain control with bowel regimen PT/OT EBL 100ml Acute Blood Loss Anemia, post-surgical expected Pre op hgb 14.6, hgb today 12.1 yesterday, stable Likely dilutional component as well Diabetes Type 2 Recent Hgb A1c 7.4 Hold metformin Glycemic pharmacy consulted by spine ortho, appreciate their recs BSG 138 Elevated blood pressure reading Has been elevated systolic since admission Not on any oral antihypertensive at home Likely a situational component - continue optimizing pain control, added a small dose of amlodipine with improvement. Continue at discharge and follow up with PCP Hyperlipidemia: Continue statin GERD (gastroesophageal reflux disease): Continue PPI DVT ppx: Per ortho Dispo: per primary PCP: Demetri Weber FULL CODE Pt was seen and examined in collaboration with Dr. De Dios, please see addendum A total of 25 minutes were spent with greater than 50% of that time face to face with the patient, personally reviewing all current laboratories, imaging studies, past medication reconciliation, outpatient chart review, and discussion with specialists to collaborate care for the patient with attending. Please see attending documentation for corrections and/or additions. Thank you for this consultation. We will follow the patient with you during their hospital stay. You can reach a member of the [facility] Hospitalist Team 04/05 via hospitalist role on tiger text. Admission and Anticipated Discharge Date Admission Date: November 04, 2022 Supervising Physician Co-Signing Physician Notes Patient is seen and examined at bedside. Doing well today. Back pain is controlled. Had BM. Denies any chest pain, dyspnea, shortness of breath. On exam patient is moderately built and nourished, no apparent distress, normocephalic/atraumatic, EOMI, normal breath sounds, clear to auscultation, S1- S2, no murmur, no pedal edema, abdomen soft, nontender, normal bowel sounds, Back:surgical site in dressing, alert, awake, oriented, grossly no focal deficits. Pain control, DVT prophylaxis as per primary team. Continue PT OT, wound care. Continue insulin for management of diabetes mellitus. Continue bowel regimen to prevent constipation. Continue Amlodipine for BP control . I personally reviewed the record. Patient is interviewed and examined at bedside. Patient's care is coordinated with Soheila Paulino PA-C. Please refer to the documentation above for details of patient's presentation and for discussion of other issues. Subjective Seen and examined in follow-up in room 303. Patient sitting in bedside chair, feeling well today. Ambulating in the halls without issue. Still has some chronic numbness in bilateral extremities but pain significantly decreased. Denies any new issues overnight. Ready to go home. No fever, chills, chest pain, shortness of breath, nausea, vomiting, abdominal pain, dysuria, diarrhea or constipation. Passing flatus, no bowel movement yet. Review of Systems Review of Systems: At least ten systems reviewed and negative except as noted in the HPI. Physical Exam Physical Exam: Gen: WD/WN, NAD, sitting in bedside chair, A&Ox3 HEENT: Normocephalic, atraumatic, conjunctivae moist, sclerae anicteric, mucous membranes moist Lung: Clear to Auscultation bilaterally, no wheezes/rales/rhonchi Heart: Regular rate, regular rhythm, no murmurs, rubs, or gallops Abdomen: Soft, NT, ND +BS x 4, + umbilical hernia, reducible Extremities: +spinal dressing c/d/i, LASHELL drain visualized. No edema Skin: Warm, no rash Results & Data Results & Data ([facility]) Vital Signs (Past 12 Hours) Vital Signs Temp Pulse Resp BP Pulse Ox O2 Del Method 11/07/22 07:03 36.9 C 64 16 147/87 H 97 Room Air Laboratory Results [facility] 11/06/22 06:03 Sodium 139 Potassium 3.9 Chloride 103 Carbon Dioxide 27 BUN 11 Creatinine 0.81 Glucose 158 H Calcium 9.1 Diagnostic Findings Lumbar Spine X-Ray 11/04/22 07:45 FL lumbar spine 2-3V CLINICAL HISTORY: L4-L5 DECOMPRESSION AND FUSION COMPARISON STUDY: None FLUOROSCOPY TIME: 20 seconds FLUOROSCOPY IMAGES: 2 EXPOSURE DOSE: 7.57 mGy FINDINGS: Posterior bilateral jeff and screw fusion with discectomy at L4-L5. The hardware appears intact. No unexpected opaque foreign bodies identified. IMPRESSION: Fluoroscopic assistance as above. ACT 112: Negative or not required by law. Electronically signed by: Nikhil Coleman M.D. 11/04/2022 9:48 AM
[2022-11-08] MEDS ORDERED: INSULIN ASPART PER UNIT SC SCH (07:30)
== END 2022-11-07 13:13 | disposition home or self-care (01) | DRG 454 ==
LOC: ASU 05:51 → 3E 09:28